=== PATIENT | female | born 1950 | race Caucasian/White ===

== ENCOUNTER 2016-10-10 12:42 | Outpatient (CLI) | payer MEDICARE, OTHER | END 2016-10-10 12:43 | disposition home or self-care (01) | DX: R19.7 Diarrhea, unspecified (principal) ==

== ENCOUNTER 2017-03-01 06:00 | Outpatient (CLI) | payer MEDICARE, OTHER ==
[2017-03-02 21:43] LABS: TEST RESULT REPORT (())
== END 2017-03-01 06:01 | disposition home or self-care (01) ==
LOC: LAB.R 06:00
PROVIDERS: ATTEND Physician Assistant
DX: R19.7 Diarrhea, unspecified (principal)
CPT/HCPCS: 81599; 87045; 87046; 87077; 87493

== ENCOUNTER 2017-03-01 07:57 | Outpatient (CLI) | payer MEDICARE, OTHER ==
[2017-03-03 17:23] LABS: TEST RESULT REPORT (())
[2017-03-05 16:07] LABS: TEST RESULT REPORT (())
[2017-03-06 11:01] LABS: TEST RESULT REPORT (())
== END 2017-03-01 07:58 | disposition home or self-care (01) ==
LOC: LAB.F 07:57
PROVIDERS: ATTEND Physician Assistant
DX: R19.4 Change in bowel habit (principal)
CPT/HCPCS: 36415; 81599; 82784; 83516; 87045; 87046; 87077; 87329; 87493

== ENCOUNTER 2019-09-09 14:45 | Outpatient (CLI) | payer MEDICARE, OTHER ==
[2019-09-09 17:39] LABS: CREATININE 0.7 mg/dL (0.4-1.0)
== END 2019-09-09 14:46 | disposition home or self-care (01) ==
LOC: LAB.S 14:45
PROVIDERS: ATTEND Physician Assistant
DX: K52.839 Microscopic colitis, unspecified (principal); R19.7 Diarrhea, unspecified
CPT/HCPCS: 36415; 82565; 84520

== ENCOUNTER 2020-09-21 08:44 | Outpatient (CLI) | payer MEDICARE, OTHER ==
[2020-09-21 17:59] LABS: PT - PROTHROMBIN TIME 10.9 secs (9.9-12.6)
== END 2020-09-21 08:45 | disposition home or self-care (01) ==
LOC: LAB.S 08:44
PROVIDERS: ATTEND Physician Assistant
DX: K52.839 Microscopic colitis, unspecified (principal); R19.7 Diarrhea, unspecified; L65.9 Nonscarring hair loss, unspecified; R19.4 Change in bowel habit; Z51.81 Encounter for therapeutic drug level monitoring; Z79.899 Other long term (current) drug therapy
CPT/HCPCS: 36415; 82306; 84446; 84590; 85610

== ENCOUNTER 2021-11-04 11:11 | Outpatient (CLI) | payer MEDICARE, OTHER ==
[2021-11-04 15:48] LABS: PT - PROTHROMBIN TIME 11.1 secs (9.9-12.6)
[2021-11-07 10:41] LABS: ALPHA-TOCOPHEROL 20.4 mg/L; BETA-GAMMA-TOCOPHEROL <1.0 mg/L (<4.4)
== END 2021-11-04 11:12 | disposition home or self-care (01) ==
LOC: LAB.S 11:11
PROVIDERS: ATTEND Physician Assistant
DX: Z51.81 Encounter for therapeutic drug level monitoring (principal)
CPT/HCPCS: 36415; 82306; 84446; 84590; 85610

== ENCOUNTER 2022-09-12 08:00 | Outpatient (CLI) | payer MEDICARE, OTHER | END 2022-09-12 23:59 | disposition home or self-care (01) | LOC: LAB.R 08:00 | PROVIDERS: ATTEND Physician Assistant | DX: K52.839 Microscopic colitis, unspecified (principal) | CPT/HCPCS: 87493 ==

== ENCOUNTER 2022-11-23 10:39 | Outpatient (CLI) | payer MEDICARE, OTHER ==
[2022-11-25 01:08] LABS: VITAMIN D 25-HYDROXY 54.6 ng/mL (30.0-100.0)
== END 2022-11-23 10:40 | disposition home or self-care (01) ==
LOC: LAB.S 10:39
PROVIDERS: ATTEND Internal Medicine
DX: K52.839 Microscopic colitis, unspecified (principal)
CPT/HCPCS: 36415; 82306; 84446; 84590

== ENCOUNTER 2023-06-13 10:57 | Outpatient (CLI) | payer OTHER, MEDICARE | END 2023-06-13 23:59 | disposition critical access hospital (66) | LOC: EMS 10:57 | DX: S09.90XA Unspecified injury of head, initial encounter (principal); R41.0 Disorientation, unspecified; R07.89 Other chest pain; V43.63XA Car passenger injured in collision with pick-up truck in traffic accident, initial encounter; Y92.413 State road as the place of occurrence of the external cause | CPT/HCPCS: A0425; A0429 ==

== ENCOUNTER 2023-06-13 11:31 | Emergency (ER) | payer OTHER, MEDICARE ==
[2023-06-13] MEDS ORDERED: KETOROLAC 15 MG/ML VIAL IVP STA (11:35)
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
[2023-06-13] MEDS ORDERED: ACETAMINOPHEN 325 MG TABLET PO STA (15:30)
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
[2023-06-13 19:39] VITALS: O2SAT 99
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
[2023-06-13 20:15] VITALS: BP 130/74
== END 2023-06-13 20:00 | disposition home or self-care (01) ==
LOC: EDUNIT# → ED 11:31
DX: S06.6X0A Traumatic subarachnoid hemorrhage without loss of consciousness, initial encounter (principal); S22.42XA Multiple fractures of ribs, left side, initial encounter for closed fracture; V89.2XXA Person injured in unspecified motor-vehicle accident, traffic, initial encounter
CPT/HCPCS: 70450; 71260; 72125; 73630; 74177; 96374; 99284; 99291; A9270

== ENCOUNTER 2023-06-23 08:00 | Outpatient (CLI) | payer MEDICARE, OTHER ==
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
== END 2023-06-23 23:59 | disposition home or self-care (01) ==
LOC: DI.S 08:00
PROVIDERS: ATTEND Emergency Medicine
DX: M25.571 Pain in right ankle and joints of right foot (principal); R93.6 Abnormal findings on diagnostic imaging of limbs; R93.89 Abnormal findings on diagnostic imaging of other specified body structures